=== PATIENT | female | born 1950 | race Caucasian/White ===

== ENCOUNTER 2017-01-24 10:52 | Emergency (ER) | payer MEDICARE, OTHER ==
[~2017-01-24] VITALS: Ht 160 cm; Wt 65.3 kg
[2017-01-24 11:17] VITALS: BP 112/64
[2017-01-24] MEDS ORDERED: DIPHTH,PERTUSS(ACELL),TET TOX 0.5 ML DISP.SYRIN. VAX IM ONE (13:00)
[2017-01-24] MEDS ORDERED: NEOMY/BACITR/POLYMYXIN OINT PACKET. TP ONE (13:00)
--- NOTE | 2017-01-24 13:02 | PHYS DOC ---
Past Medical History Past Medical History: Hypertension Past Surgical History: Alcohol Use: Occasionally Drug Use: None Adult General Chief Complaint Chief Complaint: LACERATION/AVULSION HPI HPI Patient is a 66 year old female who presents with right middle and ring finger tip avulsions. Patient states she was cutting an implant on a mandolin which cut her. Review of Systems Review of Systems Constitutional: Denies fever or chills [] Eyes: Denies change in visual acuity, redness, or eye pain [] Musculoskeletal: Denies back pain or joint pain [] Integument: right middle and ring finger tip avulsions Neurologic: Denies headache, focal weakness or sensory changes [] Endocrine: Denies polyuria or polydipsia [] Current Medications Current Medications Current Medications Medications (Trade) Dose Ordered Sig/Jonathan Start Time Stop Time Status Last Admin Dose Admin Diphtheria/ Tetanus/Acell Pertussis (Boostrix) 0.5 ml ONCE ONCE 01/24/17 13:00 01/24/17 13:01 DC Neomycin/ Polymyxin/ Bacitracin (Triple Antibiotic Ointment) 1 pkt 1X ONCE 01/24/17 13:00 01/24/17 13:01 DC Allergies Allergies Allergies Coded Allergies Type Severity Reaction Last Updated Verified codeine Adverse Reaction Mild GI upset 01/24/17 Yes Physical Exam Physical Exam Constitutional: Well developed, well nourished, no acute distress, non-toxic appearance. [] Skin: Right middle finger and ring fingertips with small superficial avulsion. Each is approximately 1 x 0.5 cm. There is no obvious tendon involvement. Full range of motion to the fingers including flexion and extension of the fingers MIP, PIP, and DIP joints. +2 right radial pulse. Cap refill less than 2 seconds the right upper extremity. Adequate radial medial and ulnar sensation to the right upper extremity. Back: No tenderness, no CVA tenderness. [] Extremities: No tenderness, no cyanosis, no clubbing, ROM intact, no edema. [] Neurologic: Alert and oriented X 3, normal motor function, normal sensory function, no focal deficits noted. [] Psychologic: Affect normal, judgement normal, mood normal. [] Current Patient Data Vital Signs Vital Signs Date Time Temp Pulse Resp B/P Pulse Ox O2 Delivery O2 Flow Rate FiO2 01/24/17 11:17 97.0 95 18 96 Room Air 97.0 EKG EKG [] Radiology/Procedures Radiology/Procedures [] Course & Med Decision Making Course & Med Decision Making Pertinent Labs and Imaging studies reviewed. (See chart for details) Patient is in the ED with right middle finger and ring finger avulsions. Bleeding is well controlled. Discharged with instructions to keep the area clean and dry, apply Neosporin to the area twice a day. Monitor it for infection. Given tetanus in the ED. Dragon Disclaimer Dragon Disclaimer This electronic medical record was generated, in whole or in part, using a voice recognition dictation system. Departure Departure Impression: Primary Impression: Avulsion, finger tip Disposition: HOME, SELF-CARE Condition: STABLE Referrals: SARAH RUIZ (PCP) Follow-up with your doctor in 1-2 weeks as needed Patient Instructions: Deep Skin Avulsion Additional Instructions: You were seen for finger tip avulsion. Keep the areas clean and dry. Apply Neosporin to the areas twice a day. Monitor the area for signs or symptoms of infection including increased redness, warmth or odor drainage from that area and return to the ED if they occur. Follow-up with the primary care doctor in 1- 2 weeks as needed. Problem Qualifiers Primary Impression: Avulsion, finger tip Encounter type: initial encounter Qualified Code: S61.209A - Unspecified open wound of unspecified finger without damage to nail, initial encounter NAT [employer] Jan 24, 2017 13:02
== END 2017-01-24 13:38 | disposition home or self-care (01) ==
LOC: ER 10:52
DX: S61.204A Unspecified open wound of right ring finger without damage to nail, initial encounter (principal); I10 Essential (primary) hypertension; Z88.5 Allergy status to narcotic agent; Y28.8XXA Contact with other sharp object, undetermined intent, initial encounter; Y93.89 Activity, other specified; Y99.8 Other external cause status; Y92.89 Other specified places as the place of occurrence of the external cause
CPT/HCPCS: 90471; 90715; 99283-25